=== PATIENT | male | born 1945 | race African-American/Black ===

== ENCOUNTER 2017-06-23 07:08 | Emergency (ER) | payer MEDICARE, OTHER ==
[2017-06-23] MEDS: HYDROcodone/APAP 5/325MG 1 TAB TABLET PO (07:47)
[2017-06-23 07:57] LABS: ADD MAN DIFF? NO
[2017-06-23 07:58] LABS: BASO # 0.1 x10^3/uL (0.0-0.2); BASO % 1 % (0-3); EOS # 0.2 x10^3/uL (0.0-0.7); EOS % 2 % (0-3); HEMATOCRIT 41.2 % (39.0-53.0); HEMOGLOBIN 13.4 g/dL (13.0-17.5); LYMPH # 1.5 x10^3/uL (1.0-4.8); LYMPH % 15 % (24-48); MEAN CORPUSCULAR HEMOGLOBIN 30 pg (25-35); MEAN CORPUSCULAR HGB CONC 33 g/dL (31-37); MEAN CORPUSCULAR VOLUME 93 fL (79-100); MONO # 0.9 x10^3/uL (0.0-1.1); MONO % 9 % (0-9); NEUT # 7.2 x10^3uL (1.8-7.7); NEUT % 73 % (31-73); PLATELET COUNT 270 x10^3/uL (140-400); RED BLOOD COUNT 4.42 x10^6/uL (4.30-5.70); RED CELL DISTRIBUTION WIDTH 13.7 % (11.5-14.5); WHITE BLOOD COUNT 9.8 x10^3/uL (4.0-11.0)
[2017-06-23 08:30] LABS: ANION GAP 10 (6-14); BLOOD UREA NITROGEN 19 mg/dL (8-26); BUN/CREATININE RATIO 13 (6-20); CALCIUM 9.1 mg/dL (8.5-10.1); CARBON DIOXIDE 26 mmol/L (21-32); CHLORIDE 102 mmol/L (98-107); CREATININE 1.5 mg/dL (0.7-1.3); GFR 55.7; GLUCOSE 193 mg/dL (70-99); SODIUM 138 mmol/L (136-145)
[2017-06-23 08:36] LABS: ALBUMIN 2.9 g/dL (3.4-5.0); ALBUMIN/GLOBULIN RATIO 0.6 (1.0-1.7); ALK PHOS 105 U/L (46-116); ALT (SGPT) 17 U/L (16-63); AST (SGOT) 13 U/L (15-37); TOTAL BILIRUBIN 0.5 mg/dL (0.2-1.0); TOTAL PROTEIN 7.5 g/dL (6.4-8.2); URIC ACID 6.8 mg/dL (3.5-7.2)
== END 2017-06-23 09:40 | disposition home or self-care (01) ==
LOC: ER 09:40
DX: M10.9 Gout, unspecified (principal); Z86.73 Personal history of transient ischemic attack (TIA), and cerebral infarction without residual deficits; I12.9 Hypertensive chronic kidney disease with stage 1 through stage 4 chronic kidney disease, or unspecified chronic kidney disease; N18.9 Chronic kidney disease, unspecified; E11.22 Type 2 diabetes mellitus with diabetic chronic kidney disease; Z88.8 Allergy status to other drugs, medicaments and biological substances
CPT/HCPCS: 36415; 73000; 73130; 80053; 84550; 85025; 93005; 99285-25

== ENCOUNTER → 2017-07-11 | Day surgery (SDC) | payer MEDICARE, OTHER ==
[~2017-07-11] MED LIST: LIDOCAINE 1% PF 2 ML VIAL. ID; LIDOCAINE 2% PF Vial for OR 5 ML VIAL.; MORPHINE SULFATE 4 MG/ML DISP.SYRIN. IV; ONDANSETRON PF 4 MG/2 ML VIAL. IV; PROCHLORPERAZINE 10 MG/2 ML VIAL. IV; PROPOFOL 20 ML IV; fentaNYL PF VIAL 100 MCG/2 ML VIAL IV
[2017-07-11] MEDS: IV RINGERS,LACTATED 1000ML 1,000 ML IV (09:47)
[2017-07-11 10:19] LABS: POC GLUCOSE 139 mg/dL (70-99)
== END ==
LOC: ENDOS 08:56
DX: Z12.11 Encounter for screening for malignant neoplasm of colon (principal); K63.5 Polyp of colon; E11.22 Type 2 diabetes mellitus with diabetic chronic kidney disease; N18.2 Chronic kidney disease, stage 2 (mild); I12.9 Hypertensive chronic kidney disease with stage 1 through stage 4 chronic kidney disease, or unspecified chronic kidney disease; F41.9 Anxiety disorder, unspecified; Z96.652 Presence of left artificial knee joint; Z86.73 Personal history of transient ischemic attack (TIA), and cerebral infarction without residual deficits; Z79.82 Long term (current) use of aspirin; Z79.899 Other long term (current) drug therapy; Z79.4 Long term (current) use of insulin
CPT/HCPCS: 45385; 82962; J2704

== ENCOUNTER 2017-09-04 15:33 | Emergency (ER) | payer MEDICARE, OTHER ==
[2017-09-04] MEDS: IBUPROFEN 600 MG TABLET. PO (16:09)
[2017-09-04 17:19] LABS: BILIRUBIN,URINE SMALL (NEG); CLARITY,URINE CLEAR; COLOR,URINE YELLOW; GLUCOSE,URINE NEGATIVE (NEG); NITRITE,URINE NEGATIVE (NEG); PH,URINE 5.5; PROTEIN,URINE 30 mg/dL (NEG-TRACE)
[2017-09-04 17:32] LABS: AMORPHOUS SEDIMENT,UR PRESENT /HPF; BACTERIA,URINE FEW /HPF (0-FEW); HYALINE CASTS, URINE OCCASIONAL /HPF; RBC,URINE 0 /HPF (0-2); SQUAMOUS EPITHELIAL CELL,UR OCC /LPF
== END 2017-09-04 18:07 | disposition home or self-care (01) ==
LOC: ER 15:33
DX: M54.5 Low back pain (principal); I13.10 Hypertensive heart and chronic kidney disease without heart failure, with stage 1 through stage 4 chronic kidney disease, or unspecified chronic kidney disease; E11.22 Type 2 diabetes mellitus with diabetic chronic kidney disease; N18.9 Chronic kidney disease, unspecified; Z86.73 Personal history of transient ischemic attack (TIA), and cerebral infarction without residual deficits; Z90.49 Acquired absence of other specified parts of digestive tract; Z88.8 Allergy status to other drugs, medicaments and biological substances
CPT/HCPCS: 72100; 81001; 87086; 99285-25

== ENCOUNTER 2017-10-17 14:03 | Emergency (ER) | payer MEDICARE, OTHER ==
[2017-10-17] MEDS: ALPRAZolam 0.5 MG TABLET PO (15:38)
[2017-10-17] MEDS: HYDROcodone/APAP 5/325MG 1 TAB TABLET PO (16:47)
== END 2017-10-17 16:47 | disposition home or self-care (01) ==
LOC: ER 14:03
DX: M48.02 Spinal stenosis, cervical region (principal); R51 Headache; I12.9 Hypertensive chronic kidney disease with stage 1 through stage 4 chronic kidney disease, or unspecified chronic kidney disease; E11.22 Type 2 diabetes mellitus with diabetic chronic kidney disease; N18.9 Chronic kidney disease, unspecified; I25.2 Old myocardial infarction; M10.9 Gout, unspecified; Z88.8 Allergy status to other drugs, medicaments and biological substances
CPT/HCPCS: 70450; 72125; 99283; 99284

== ENCOUNTER → 2019-10-16 | Outpatient (CLI) | payer MEDICARE, OTHER ==
[2017-10-17 16:22] VITALS: BP 160/82
[~2019-10-16] MED LIST changes: +ACET-1571 PO; +ACET500T68 PO; +ALLO100T PO; +ALPR1TAB2 PO; +AMLO10TA8 PO; +AMOX250C PO; +ASPI325T11 PO; +ASPI81TA59 PO; +ATOR20TA58 PO; +COLC0.6T34 PO; +DIAZ2TAB PO; +DOCU-109 PO; +FLUT9.9S NS; +GLIM4TAB8 PO; +GLIP5TAB10 PO; +HYDR-2868 PO; +HYDR-3164 PO; +HYDR-3165 PO; +HYDR12.575 PO; +Hydrocodone/Acetaminophen PO; +INSU100V11 SQ; +INSU200I4 SQ; -LIDOCAINE 1% PF 2 ML VIAL. ID; -LIDOCAINE 2% PF Vial for OR 5 ML VIAL.; +LIRA0.6P SQ; +LORA10TA3 PO; +LOSA-73 PO; +METO25TA4 PO; -MORPHINE SULFATE 4 MG/ML DISP.SYRIN. IV; +OMEG1CAP6 PO; -ONDANSETRON PF 4 MG/2 ML VIAL. IV; -PROCHLORPERAZINE 10 MG/2 ML VIAL. IV; -PROPOFOL 20 ML IV; +ZOST1940 SQ; -fentaNYL PF VIAL 100 MCG/2 ML VIAL IV
--- NOTE | 2019-10-16 16:11 | RAD ---
EXAM: Chest, 2 views. HISTORY: Cough. COMPARISON: 01/01/2015. FINDINGS: 2 views of the chest are obtained. There is no infiltrate, pleural effusion or pneumothorax. The heart is normal in size. There are small circumscribed nodular opacities overlying both lower lungs likely due to nipple shadows. IMPRESSION: No acute pulmonary finding. Small nodular opacities overlying the lower lungs likely due to nipple shadows. Follow-up following placement of nipple markers can be performed for confirmation. Electronically signed by: Sofya Estrella MD (10/16/2019 4:08 PM) [id number]
== END | disposition home or self-care (01) ==
LOC: RAD 14:27
PROVIDERS: ATTEND Family Medicine
DX: R05 Cough (principal)
CPT/HCPCS: 71046

== ENCOUNTER → 2020-10-01 | Outpatient (CLI) | payer MEDICARE, OTHER ==
[2020-06-09 15:00] VITALS: BP 160/58
[~2020-10-01] MED LIST changes: +ALPR0.5T6 PO; +AMLO-186 PO; +AMLO-187 PO; -AMLO10TA8 PO; +ASPI-630 PO; +HYDR-2759 PO; +HYDR12.58 PO; +INSU100I49 SQ; +LIRA0.6P2 SQ; +LOSA100T14 PO; +METO50TA6 PO; +REGADENOSON 0.4 MG/5 ML DISP.SYRIN. IV ONE
--- NOTE | 2020-10-01 16:18 | RAD ---
MR#: [id number] Date of Study: 10/01/2020 Ordering Physician: BRYSON THORNTON, Referring Physician: JAMES VALDEZ Tech: PEPE Mckenna ARRT (R) (N) APPROVED REPORT Test Type: Pharmacological Stress Nurse/Tech: Renae Munoz R.N. Test Indications: SANTOS Cardiac History: high chol, htn, pacemaker, dm Medications: see ehr Medical History: see ehr Resting ECG: Paced rhythm Resting Heart Rate: 74 bpm Resting Blood Pressure: 176/85mmHg Pretest Chest Pain: No chest pain Nurse/Tech Notes lungs cta, strong radial pulse Consent: The procedure was explained to the patient in lay terms. Informed consent was witnessed. Julio eout was entered into [facility]. History and Stress Test performed by RT Dawna Mi) (N) Pharm. Details Pharmacologic stress testing was performed using 0.4mg per 5ml of regadenoson given intravenously ove r 7-10 seconds. Stress Symptoms No chest pain or symptoms. POST EXERCISE Reason for Termination: Infusion complete Target HR: No Max HR: 94 bpm Max Blood Pressure: 179/89mmHg Chest Pain: No. Arrhythmia: No. occasional pacer spikes noted ST Change: No. INTERPRETATION Stress EKG Conclusion: Baseline EKG showed ventricular paced rhythm. Nondiagnostic changes at peak s tress. No arrhythmias. Imaging Protocol IMAGE PROTOCOL: Rest Tc-99m/stress Tc-99m 1 day Rest: Stress: Viability: Radiopharm.Tc99m CgevovmskDi40f Sestamibi Ecrb16cNg 30.2mCi Img Date 10/01/2020 10/01/2020 Inj-Img [id number]. 60min. Rest Admin Site:IV - Right HandAdministrator:PEPE Mckenna ARRT (R)(N) Stress Admin Site: IV - Right HandAdministrator: RT Dawna Mi)(N) STRESS DATA End Diast. Vol.99.0mlAv. Heart Rate84.0bpm End Syst. Vol.35.0mlCO Index BSA0.0L/min Myocardial Vpgg433.0gEject. Gidrrwfe44.0% Stress Rates Pk. Fill Rate2.73EDV/secLVtime Pk. Fill 165.81msec Pk. Empty Rate3.78ESV/secLVtime Pk. Xajmr580.79msec 1/3 Pk. Fill1.41EDV/sec Stress Scores Regional WT0.00Summed WT4.00 Regional WM0.00Summed WM3.00 LV Perfusion Scintigraphic images showed fixed inferior wall defect, most probably diaphragmatic attenuation artif act based on normal wall motion. No other fixed or reversible defects were seen. Wall Motion Normal left ventricular systolic function with ejection fraction calculated at 67%. LV Perf. Quant 17 Seg. SSS1.00 17 Seg. SRS1.00 17 Seg. SDS0.00 Stress Defect Extent (% LAD)0.00Rest Defect Extent (% LAD)0.00Rev. Defect Extent (% LAD)0.00 Stress Defect Extent (% LCX) 0.00Rest Defect Extent (% LCX)0.00Rev. Defect Extent (% LCX)0.00 Stress Defect Extent (% RCA)0.00Rest Defect Extent (% RCA)0.00Rev. Defect Extent (% RCA)0.00 Stress Defect Extent (% JESÚS)0.00Rest Defect Extent (% JESÚS)0.00Rev. Defect Extent (% JSEÚS)0.00 Conclusion 1. Regadenoson cardioisotope stress test showed diaphragmatic attenuation artifact without any eviden ce of ischemia or infarct. 2. Normal left ventricular systolic function with ejection fraction calculated at 67%. 3. Low risk for cardiac events. Signed by : Poncho Springer, Electronically Approved : 10/01/2020 16:18:14
== END ==
LOC: NM 09:36
PROVIDERS: ATTEND Internal Medicine Cardiovascular Disease
DX: R06.00 Dyspnea, unspecified (principal)
CPT/HCPCS: 78452; 93017; A9500; J2785

== ENCOUNTER 2021-01-05 09:53 | Emergency (ER) | payer MEDICARE, OTHER ==
[~2021-01-05] VITALS: Ht 175.3 cm; Wt 101.0 kg
[~2021-01-05 09:53] MED LIST changes: -REGADENOSON 0.4 MG/5 ML DISP.SYRIN. IV ONE
[2021-01-05 10:40] VITALS: BP 172/90
[2021-01-05] MEDS ORDERED: CYCLOBENZAPRINE 10 MG TABLET. PO ONE (10:45)
--- NOTE | 2021-01-05 11:13 | RAD ---
Right foot 3 views, left hip 2 views with one view pelvis. HISTORY: Right foot pain, fell on Monday, left hip pain Right foot 3 views were taken of the right foot. There is a metal fragments between the first and second metatar sals in the foot suggesting an old injury. There is a transverse fracture through the proximal third of the right fifth metatarsal without displacement. There is no acute fracture. There is extensive va scular calcification. There is mild spurring on the calcaneus. IMPRESSION: 1. Transverse fracture through the right fifth metatarsal without displacement. End impression Left hip with one view pelvis Single view was taken of the pelvis. There is mild arthritis in the right hip. Penile implant. Is no acute pelvic fracture. There is degenerative disc disease in the lower lumbar spine. 2 views were taken of the left hip. There is no acute left hip fracture. IMPRESSION: 1. No fracture noted in the pelvis or left hip. 2. Mild arthritis right hip. 3. Degenerative disc disease in lower lumbar spine. Electronically signed by: Sam Lee MD (01/05/2021 11:11 AM) [id number]
--- NOTE | 2021-01-05 11:20 | PHYS DOC ---
Past Medical History Past Medical History: Anxiety, CAD, Diabetes-Type II, High Cholesterol, H ypertension, Renal Disease, Stroke, Other Additional Past Medical Histor: STAGE 3 RENAL FAILURE, gout, cardiovascular disease Past Surgical History: Appendectomy, Pacemaker, Other Additional Past Surgical Histo: LT KNEE, back surgery L5, PENILE IMPLANT Smoking Status: Former Smoker Alcohol Use: None Drug Use: None General Adult EDM: Chief Complaint: MECHANICAL FALL HPI: HPI: Patient is a 75 year old male who presents with right lateral foot pain and left inguinal/left groin pain. About 48 hours ago he fell about 2 feet off of a stepladder, while working in his garage. He fell onto his right side. He sustained a superficial abrasion of his right elbow, which is not causing him any pain. He denies any right upper extremity pain. He denies any right-sided hip thigh or knee pain. He has right lateral foot pain, near his pinky toe. He is able to ambulate. In addition, he reports pain of his left groin, worsens with active hip flexion. He is any injury to the left side of his hip or pelvis. He admits that he has had pain intermittently there for years, and he alludes to this having been attributed to a lumbar radiculopathy issue, based on his description. He reports that he had not had pain quite this severe in some time, and after the fall it seems to be worse. Lightly bumped his head when he fell, hitting the side of a toolbox. He has no head injury, swelling or headache. He denies neck or back pain. He denied loss of consciousness. No new injury or trauma since then. He denies dizziness, syncope, abdominal pain, nausea vomiting, chest pain, dyspnea. He has not contacted his primary care physician. He has not taken anything for this pain yet. Review of Systems: Review of Systems: Constitutional: Denies fever or chills. [] Eyes: Denies change in visual acuity. [] HENT: Denies nasal congestion or sore throat. [] Respiratory: Denies cough or shortness of breath. [] Cardiovascular: Denies chest pain or edema. [] GI: Denies abdominal pain, nausea, vomiting, bloody stools or diarrhea. [] : Denies dysuria. [] Musculoskeletal: Denies back pain or joint pain. [] Integument: Denies rash. [] Neurologic: Denies headache, focal weakness or sensory changes. [] Endocrine: Denies polyuria or polydipsia. [] Lymphatic: Denies swollen glands. [] Psychiatric: Denies depression or anxiety. [] Heart Score: C/O Chest Pain: No Risk Factors: Risk Factors: DM, Current or recent (<one month) smoker, HTN, HLP, family history of CAD, obesity. Risk Scores: Score 0 - 3: 2.5% MACE over next 6 weeks - Discharge Home Score 4 - 6: 20.3% MACE over next 6 weeks - Admit for Clinical Observation Score 7 - 10: 72.7% MACE over next 6 weeks - Early Invasive Strategies Current Medications: Current Medications Medications (Trade) Dose Ordered Sig/Eric Start Time Stop Time Status Last Admin Dose Admin Cyclobenzaprine HCl (Flexeril) 10 mg 1X ONCE 01/05/21 10:45 01/05/21 10:46 DC 01/05/21 10:52 10 MG Allergies: Allergies: Allergies Coded Allergies Type Severity Reaction Last Updated Verified lisinopril Allergy Intermediate COUGH 07/11/17 Yes Physical Exam: PE: Constitutional: Well developed, well nourished, no acute distress, non-toxic appearance. [] HENT: Normocephalic, atraumatic, bilateral external ears normal, oropharynx moist, no oral exudates, nose normal. [] Eyes: PERRL, EOMI, conjunctiva normal, no discharge. [] Neck: Normal range of motion, no tenderness, supple, no stridor. [] Cardiovascular:Heart rate regular rhythm, no murmur, +2 dorsalis pedis pulses and radial pulses bilaterally. [] Lungs & Thorax: Bilateral breath sounds clear to auscultation [] Abdomen: Bowel sounds normal, soft, no tenderness, no masses, no pulsatile masses. [] Skin: Warm, dry, no erythema, no rash. No open wounds or lacerations. [] Back: No tenderness, no CVA tenderness. [] Extremities: No limb deformities are noted. Pelvis is stable. Mild soft tissue swelling and tenderness of the right, dorsal fifth metatarsal. No palpable crepitus or step-offs. Full painless range of motion of the digits of the right foot, full painless range of motion of the right ankle. No calf tenderness. Minimal soft tissue tenderness to palpation of the left inguinal area, near the iliopsoas insertion site. No bony tenderness. No tenderness with passive range of motion of either hip. Neurologic: Alert and oriented X 3, normal motor function, normal sensory function, no focal deficits noted. Gait is steady, 5 out of 5 motor strength all 4 extremities, speech is clear and fluent. [] Psychologic: Affect normal, judgement normal, mood normal. He is pleasant and cooperative. [] Current Patient Data: Vital Signs: Vital Signs Date Time Temp Pulse Resp B/P (MAP) Pulse Ox O2 Delivery O2 Flow Rate FiO2 01/05/21 10:40 98.1 100 16 172/90 (117) 98 98.1 EKG: EKG: [] Radiology/Procedures: Radiology/Procedures: IMAGING REPORT Signed PATIENT: DAREN KAHN ACCOUNT: [id number] : 1945 LOCATION: ER AGE: 75 SEX: M EXAM STATUS: PRE ER ORD. PHYSICIAN: CARLINE KENNEY DO REASON: RT foot pain, pt fell Monday PROCEDURE: FOOT RIGHT 3V Right foot 3 views, left hip 2 views with one view pelvis. HISTORY: Right foot pain, fell on Monday, left hip pain Right foot 3 views were taken of the right foot. There is a metal fragments between the first and second metatarsals in the foot suggesting an old injury. There is a transverse fracture through the proximal third of the right fifth metatarsal without displacement. There is no acute fracture. There is extensive vascular calcification. There is mild spurring on the calcaneus. IMPRESSION: 1. Transverse fracture through the right fifth metatarsal without displacement. End impression Left hip with one view pelvis Single view was taken of the pelvis. There is mild arthritis in the right hip. Penile implant. Is no acute pelvic fracture. There is degenerative disc disease in the lower lumbar spine. 2 views were taken of the left hip. There is no acute left hip fracture. IMPRESSION: 1. No fracture noted in the pelvis or left hip. 2. Mild arthritis right hip. 3. Degenerative disc disease in lower lumbar spine. Electronically signed by: Sam Lee MD (01/05/2021 11:11 AM) [id number] DICTATED and SIGNED BY: SAM LEE MD DATE: 01/05/21 [id number] 0 Course & Med Decision Making: Course & Med Decision Making Pertinent Labs and Imaging studies reviewed. (See chart for details) The patient does not want to take any opioid pain medication. He is agreeable to getting Flexeril, so this is given. Postop shoe was given for the right foot. I discussed the findings, differential diagnosis and plan of care with him. No current indication for further imaging or invasive exams. I recommend he contact his primary care physician. If his left inguinal/hip pain continues, he may require outpatient MRI. His foot fracture is nonsurgical, and he may follow-up with his PCP for this as well. He is comfortable with the plan of care. Return precautions are given. Dragon Disclaimer: Dragon Disclaimer: This electronic medical record was generated, in whole or in part, using a voice recognition dictation system. Departure Departure Impression: Primary Impression: Closed fracture of fifth metatarsal bone of right foot Additional Impression: Left inguinal pain Disposition: HOME / SELF CARE / HOMELESS Condition: LEFT WITHOUT BEING SEEN Referrals: NIGHAT MCCLUOD MD (PCP) Patient Instructions: Foot Fracture, Groin Strain Additional Instructions: Use the medication as needed and as directed. You may want to see a physical therapist for some gentle stretching of your left groin area. Wear the postop shoe to protect your foot. Your fracture should heal without any difficulty. Return for any new injury, more severe pain, fever of 100.4 or higher, more severe swelling, redness, open wounds of the skin, weakness or any other concerns. Contact your primary care physician for follow-up. You may require further imaging, such as MRI if your symptoms persist. Scripts Cyclobenzaprine Hcl (CYCLOBENZAPRINE HCL) 10 Mg Tablet 1 TAB PO BID for muscle relaxer, #14 TAB Prov: CARLINE KENNEY DO 01/05/21 CARLINE KENNEY DO Jan 05, 2021 11:20
[2021-01-05] MEDS ORDERED: CYCL10TA2 PO (11:40)
== END 2021-01-05 11:46 | disposition home or self-care (01) ==
LOC: ER 09:53
DX: S92.351A Displaced fracture of fifth metatarsal bone, right foot, initial encounter for closed fracture (principal); R10.32 Left lower quadrant pain; I25.10 Atherosclerotic heart disease of native coronary artery without angina pectoris; E11.9 Type 2 diabetes mellitus without complications; E78.00 Pure hypercholesterolemia, unspecified; I10 Essential (primary) hypertension; Z86.73 Personal history of transient ischemic attack (TIA), and cerebral infarction without residual deficits; Z95.0 Presence of cardiac pacemaker; Z88.8 Allergy status to other drugs, medicaments and biological substances; W11.XXXA Fall on and from ladder, initial encounter; Y93.89 Activity, other specified; Y92.89 Other specified places as the place of occurrence of the external cause; Y99.8 Other external cause status
CPT/HCPCS: 73502; 73630; 99284

== ENCOUNTER → 2021-03-04 | Outpatient (CLI) | payer MEDICARE, OTHER ==
[~2021-03-04] MED LIST changes: +CYCL10TA19 PO
[2021-03-04] MEDS: GADOTERATE 7.5 MMOL/15ML VIAL. IVP ONE (14:58)
--- NOTE | 2021-03-04 16:57 | RAD ---
MRI LUMBAR SPINE WITHOUT AND WITH IV CONTRAST History: Reason: MRI L-SPINE W/ W/O CONTRAST, INTERVERTEBRAL DISC DISORDER W/ MYELOPATHY / Spl. Ins tructions: 15mL CLARISCAN / History: Technique: Multiplanar, multi sequential MR imaging was performed of the lumbar spine without and wit h intravenous contrast. Comparison: December 10, 2014 Findings: Grade 1 anterolisthesis L4 on L5, increased compared to prior. Slight grade 1 anterolisthesis L5 on S 1, decreased compared to prior. Normal vertebral body height. No acute fracture. Mild degenerative en dplate edema L3-L4. Posterior decompression L4-L5 with posterior and left lateral epidural enhancement, likely fibrosis. Conus terminates at the normal location. No evidence of nerve root clumping. L1-L2: Small disc bulge. Mild facet arthropathy. No canal narrowing. Mild disc radicular recess narr owing. Mild bilateral neuroforaminal narrowing. L2-L3: Broad-based disc bulge. Mild facet arthropathy. Minimal canal narrowing. Subarticular recess narrowing. Mild bilateral neuroforaminal narrowing. L3-L4: Broad-based disc bulge. Mild canal narrowing. Subacute recess narrowing. Moderate facet arthr opathy. Ligament of flavum thickening. Mild bilateral neuroforaminal narrowing. L4-L5: Anterolisthesis. Disc uncovering with disc extrusion superiorly. Right posterior osteophytic changes with ill-defined enhancement. Severe canal narrowing. Advanced facet arthropathy. Severe suba rticular recess narrowing. Abutment of descending nerve roots. Severe bilateral neuroforaminal narrow ing with abutment of exiting L4 nerve roots. L5-S1: Small posterior disc bulge. Advanced facet arthropathy. Moderate canal narrowing. Subarticula r recess narrowing. Moderate left and severe right neuroforaminal narrowing. Impression: 1. Multilevel lumbar spondylosis most prominent L4-5 and L5-S1. 2. L4-5 grade 1 anterolisthesis with severe canal and subarticular recess narrowing. 3. Postoperative changes L4-5 with epidural enhancement may represent fibrosis. 4. Neuroforaminal narrowing most prominent bilateral L4-L5 and right L5-S1 Electronically signed by: Miguel Aleman DO (03/04/2021 4:54 PM) [id number]
== END ==
LOC: MRI 13:29
PROVIDERS: ATTEND Internal Medicine
DX: M47.817 Spondylosis without myelopathy or radiculopathy, lumbosacral region (principal); M43.16 Spondylolisthesis, lumbar region; R60.0 Localized edema; M48.07 Spinal stenosis, lumbosacral region; M48.8X7 Other specified spondylopathies, lumbosacral region; M51.27 Other intervertebral disc displacement, lumbosacral region; M51.06 Intervertebral disc disorders with myelopathy, lumbar region; Z98.890 Other specified postprocedural states
CPT/HCPCS: 72158; A9575

== ENCOUNTER → 2021-03-10 | Outpatient (CLI) | payer MEDICARE, OTHER ==
--- NOTE | 2021-03-10 13:51 | RAD ---
EXAM: Lumbar spine, flexion and extension; lumbar spine, 2 views. HISTORY: Pain. COMPARISON: None. FINDINGS: Frontal and lateral neutral and lateral flexion and extension views lumbar spine are obtain ed. There is 3 mm grade 1 anterolisthesis of L4 and L5 and L5 on S1. There is does not change between flexion and extension. There is mild retrolisthesis of L1 on L2, L2 on L3 and L3 on L4 which slightl y increases with extension. There is multilevel endplate remodeling and anterior predominant osteophy tosis. There is disc space narrowing predominantly at L4-L5. There is facet arthropathy predominantly at the lower lumbar levels. IMPRESSION: 1. Multilevel degenerative change, primarily at L4-L5. 2. Mild multilevel listhesis. This does not change between flexion and extension. Electronically signed by: Sofya Estrella MD (03/10/2021 1:48 PM) [id number]
== END ==
LOC: RAD 12:23
PROVIDERS: ATTEND Neurological Surgery
DX: M47.816 Spondylosis without myelopathy or radiculopathy, lumbar region (principal); M43.17 Spondylolisthesis, lumbosacral region; M48.8X6 Other specified spondylopathies, lumbar region; M25.78 Osteophyte, vertebrae
CPT/HCPCS: 72100; 72120

== ENCOUNTER → 2021-06-08 | Outpatient (CLI) | payer MEDICARE, OTHER ==
--- NOTE | 2021-06-08 15:04 | EKG ---
[facility] [address] [place] [address] Test Date: 2021-06-08 Test Time: 14:52:06 Pat Name: DAREN KAHN Department: Room: Gender: M Allergy Specialist: : 1945 Requested By: BERNY SANCHEZ Order Number: [id number] Reading MD: Anant Bailey MD Measurements Intervals [place] Rate: 70 P: 9 MI: 166 QRS: -63 QRSD: 146 T: 104 QT: 440 QTc: 478 Interpretive Statements SINUS RHYTHM V-PACED Electronically Signed On 06-10-2021 14:58:59 CDT by Anant Bailey MD
[2021-06-08 15:05] LABS: BASO # 0.1 x10^3/uL (0.0-0.2); BASO % 1 % (0-3); EOS # 0.3 x10^3/uL (0.0-0.7); EOS % 4 % (0-3); HEMATOCRIT 37.8 % (39.0-53.0); HEMOGLOBIN 12.4 g/dL (13.0-17.5); LYMPH # 1.9 x10^3/uL (1.0-4.8); LYMPH % 27 % (24-48); MEAN CORPUSCULAR HEMOGLOBIN 31 pg (25-35); MEAN CORPUSCULAR HGB CONC 33 g/dL (31-37); MEAN CORPUSCULAR VOLUME 93 fL (79-100); MONO # 0.6 x10^3/uL (0.0-1.1); MONO % 9 % (0-9); NEUT # 4.2 x10^3/uL (1.8-7.7); NEUT % 59 % (31-73); PLATELET COUNT 263 x10^3/uL (140-400); RED BLOOD COUNT 4.08 x10^6/uL (4.30-5.70); RED CELL DISTRIBUTION WIDTH 13.3 % (11.5-14.5)
[2021-06-08 15:32] LABS: ALBUMIN 3.4 g/dL (3.4-5.0); ALBUMIN/GLOBULIN RATIO 0.8 (1.0-1.7); CALCIUM 9.6 mg/dL (8.5-10.1); CREATININE 1.9 mg/dL (0.7-1.3); GFR 41.9; POTASSIUM 4.5 mmol/L (3.5-5.1); TOTAL BILIRUBIN 0.2 mg/dL (0.2-1.0); TOTAL PROTEIN 7.6 g/dL (6.4-8.2)
[2021-06-09 00:08] LABS: HEMOGLOBIN A1C 8.6 % (4.8-5.6)
== END ==
LOC: SURGPAT 14:09
PROVIDERS: ATTEND Neurological Surgery
DX: Z01.818 Encounter for other preprocedural examination (principal); M48.062 Spinal stenosis, lumbar region with neurogenic claudication
CPT/HCPCS: 36415; 80053; 83036; 85025; 87641; 93005

== ENCOUNTER 2021-06-14 07:10 | Day surgery (SDC) | payer MEDICARE, OTHER ==
[2021-06-08 14:29] VITALS: BP 152/74
--- NOTE | 2021-06-11 16:24 | HP ---
DATE OF SERVICE: 06/11/2021 ADMIT DATE: 06/14/2021 PREOPERATIVE HISTORY AND PHYSICAL HISTORY OF PRESENT ILLNESS: The patient is a pleasant 75-year-old who has undergone 2 surgeries on his lumbar spine. The most recent was at L4-L5 for herniated disc in 2014. His current problem is low back pain, which he describes as a stiffness-type pain. He says his main problem is difficulty with walking and hip pain with walking. The left side is more involved than the right. Standing and walking increases his pain. Sitting helps. He says his left leg feels very heavy. His pain is 6/10 with activity. He does have an artificial left knee. CURRENT MEDICATIONS: Hydralazine, alprazolam, Victoza, aspirin, allopurinol, acetaminophen, losartan, amlodipine, atorvastatin. PAST MEDICAL HISTORY: Diabetes, hypertension, arthritis, gout, chronic kidney disease, stroke, heart disease. PAST SURGICAL HISTORY: Appendectomy, cardiac cath, lumbar microdecompressive surgery at L4-L5 and L5-S1 in 09/2013, lumbar laminectomy L4-L5 and microdiskectomy L4-L5 in 12/2014, cataract surgery, pacemaker, left knee surgery. FAMILY HISTORY: Cancer, hypertension, diabetes. SOCIAL HISTORY: Retired, , nonsmoker. Does not drink alcohol. ALLERGIES: No known drug allergies. REVIEW OF SYSTEMS: A 12-point review of systems was performed and is noncontributory except that mentioned above. PHYSICAL EXAMINATION: GENERAL: Alert, pleasant, and in no acute distress. HEENT: Head is normocephalic, atraumatic. SKIN: Warm and dry. Well-healed lumbar incision. MUSCULOSKELETAL: Lumbar paraspinal muscle bulk is normal, restricted range of motion of the lumbar spine, [id number]-lr-[id number] tenderness of the lower lumbar spine with palpation, normal range of motion of the lower extremities bilaterally. EXTREMITIES: No clubbing, cyanosis or edema. NEUROLOGIC: Alert and oriented x3. Normal recent and remote memory, strength is 5/5 in the bilateral lower extremities except 4+/5 left foot dorsiflexion and 4/5 left EHL, sensory is intact to light touch in the lower extremities, reflexes were trace and symmetric in the lower extremities, positive straight leg raising on the left and a slow forward stooped gait. IMAGING: I reviewed his lumbar MRI scan. On that study, there is a grade 1 anterolisthesis of L4 and L5 as well as severe lumbar spinal stenosis. There is also severe subarticular recess narrowing. I also reviewed lumbar flexion/extension x-rays. I do not see significant motion. ASSESSMENT AND PLAN: I believe the majority of his symptoms are related to the severe lumbar stenosis at L4-L5. There is no motion and I am recommending a bilateral lumbar decompressive surgery to relieve the spinal stenosis. I spoke with him about the surgery including the technique, the risk and the expected postoperative course. He understands and would like to proceed. We will make the arrangements. ALIRIO DR: Twin TID: [id number] CHICA
[~2021-06-14] VITALS: Ht 175.3 cm; Wt 104.8 kg
[~2021-06-14 07:10] MED LIST changes: +0.9 % SODIUM CHLORIDE 20 ML VIAL. IJ ONE; +BUPIVACAINE-EPI 0.5% 30 ML VIAL KIT. ONE; +DEXAMETHASONE SOD PHOS 4 MG/ML VIAL ONE; +GELATIN SPONGE SIZE 100. ONE; +GLYCOPYRROLATE 1 MG/5 ML VIAL. ONE; +HYDROmorphone 2 MG/ML INJ. IVP PRN; +IV RINGERS,LACTATED 1000ML 1,000 ML IV SCH; +KETOROLAC 60 MG/2 ML VIAL. ONE; +LIDOCAINE 2% PF 5 ML VIAL. ONE; +MORPHINE SULFATE 2 MG/ML INJ. IVP PRN; +NEOSTIGMINE METHYLSULFATE 5 MG/5 ML SYRINGE. ONE; +ONDANSETRON PF 4 MG/2 ML VIAL. ONE; +PHENYLEPHRINE 10 MG/ML VIAL. ONE; +PHENYLEPHRINE in 0.9% NACL PF 1 MG/10 ML SYRINGE. IV ONE; +PROCHLORPERAZINE 10 MG/2 ML VIAL. IVP PRN; +PROPOFOL 0 ML IV ONE; +PROPOFOL 10 MG/ML (20ML) VIAL. IV ONE; +REMIFENTANIL 1 MG VIAL. IV ONE; +ROCURONIUM 50 MG/5 ML VIAL. ONE; +THROMBIN TOPICAL 20,000 UNIT SPRAY.SYRN KIT TP ONE; +ceFAZolin SODIUM 1 GM in IV NORMAL SALINE 1000ML BAG 1,000 ML IRR ONE; +fentaNYL PF VIAL 100 MCG/2 ML VIAL IVP PRN; +fentaNYL PF VIAL 100 MCG/2 ML VIAL ONE
[2021-06-14 07:33] VITALS: BP 205/95
[2021-06-14] MEDS ORDERED: PROPOFOL 50 ML IV ONE (07:35)
[2021-06-14] MEDS: INSULIN LISPRO 100 UNIT/ML 3ML VIAL for OP,RR ONLY. SQ PRN ×2 (08:14→13:16)
[2021-06-14] MEDS ORDERED: PROPOFOL 100 ML IV ONE (09:50)
[2021-06-14] MEDS ORDERED: GELATIN SPONGE SIZE 100. TP ONE (09:50)
[2021-06-14] MEDS ORDERED: GELATIN SPONGE SIZE 100. ONE (11:25)
[2021-06-14] MEDS ORDERED: METH-562 PO (12:12)
[2021-06-14] MEDS ORDERED: DOCU-109 PO (12:12)
[2021-06-14] MEDS ORDERED: HYDR-2761 PO (12:12)
--- NOTE | 2021-06-14 12:16 | DISCH ---
DISCHARGE INSTRUCTIONS Condition on Discharge Condition on Discharge: Stable Activity After Discharge Activity Instructions for Disc: Activity as tolerated, Avoid exertion, Other, see below Other activity instructions: no driving for a week Bathing Instructions: Shower-keep dressing dry, No Tub Bath until see Lifting Instructions after Dis: No heavy lifting, No pulling or pushing, Do not lift >10 pounds, Add. restrict see below Exercise Instruction after Dis: Progress as tolerated Driving Instructions after Dis: Do not drive Weight Bearing Status after Di: No restrictions Diet after Discharge Diet after Discharge: Diabetic No Calorie Level Additional Diet Restrictions: resume home diet Diet Texture: Regular Liquid Texture: Thin Liquid Swallowing Supervision: None needed Wound Incision Care Wound/Incision Care: Ice to area for comfort, Change dressing, Other, see below Other wound/incision instructi: may remove dressing in 48 hours if dry, yudith out in 2 weeks Wound Care Equipment: Dressings, Sutures/yudith Checks after Discharge Checks after discharge: Check blood sugar, ac/hs Contacting the [facility] after DC Call your doctor for: Concerns you may have Follow-Up Follow up with: Dr. Sanchez's nurse in 2 weeks [phone] Treatment/Equipment after DC Adaptive Equipment Issued: None BERNY SANCHEZ MD Jun 14, 2021 12:16
[2021-06-14 13:10] VITALS: BP 165/73
[2021-06-14] MEDS ORDERED: HYDROcodone/APAP 5/325MG 1 TAB TABLET PO ONE (13:15)
[2021-06-14] MEDS ORDERED: INSULIN LISPRO 100 UNIT/ML 3ML VIAL for OP,RR ONLY. SQ ONE ×2 (13:20)
--- NOTE | 2021-06-16 18:06 | PATHOLOGY ---
[facility] Accession Number: [id number] . 01 Material submitted: . vertebral column - LUMBAR DECOMPRESSION . 01 Clinical history: . LUMBAR STENOSIS . 02 Diagnosis: Segments of fibrocartilaginous and fibroadipose tissue and bone, lumbar decompression: - Degenerative changes of fibrocartilaginous tissue. (JPM:davin; 06/16/2021) S 06/16/2021 1752 Local . 02 Comment: There is no evidence of an acute inflammatory process or malignancy. (JPM:davin; 06/16/2021) . 02 Electronically signed: . Sesar Cormier MD, Pathologist NPI- [id number] . 01 Gross description: . The specimen is received in formalin, labeled "Matty Melgar, lumbar decompression". Received are multiple segments of pink-larry fibrous tissue admixed with gritty fragments of bone measuring 3.8 x 3.7 x 0.9 cm in aggregate dimensions. The specimen is submitted representatively in cassette A1, following decalcification. (CAA; 06/14/2021) QAC/QAC 06/14/2021 1521 Local . 02 Pathologist provided ICD-10: M51.36 . 02 CPT . 664560, [id number] Specimen Comment: A courtesy copy of this report has been sent to [phone], [phone] Specimen Comment: [id number] Specimen Comment: Report sent to / DR MCCLOUD Performed at: 01 [facility] [address], [place] [id number] MD Jama Petit MD Phone: [phone] Performed at: 02 [facility] [address] [place], [place] [id number] MD Sesar Cormier MD Phone: [phone]
--- NOTE | 2021-06-29 20:18 | OP ---
DATE OF SURGERY: 06/14/2021 PREOPERATIVE DIAGNOSES: Severe lumbar spinal stenosis, L4-L5 with severe subarticular recess narrowing and radiculopathy. POSTOPERATIVE DIAGNOSES: Severe lumbar spinal stenosis, L4-L5 with severe subarticular recess narrowing and radiculopathy. OPERATION PERFORMED: Lumbar laminectomy, L4-L5. This is a reoperation. The operation was done with EMG monitoring, SSEP monitoring, fluoroscopy, microscopic dissection. SURGEON: Kavin Puga M.D. FIRER MARINE: ADRIEL Almanza, assisted with the surgery. She assisted with the exposure, the laminectomy, as well as the closure. OPERATIVE INDICATIONS: The patient is a pleasant 75-year-old man who developed intractable back and bilateral leg pain. The left side is more involved than the right. He has undergone 2 previous surgeries in the lumbar spine, most recently at L4-L5 for herniated disc in 2015. He did have a grade I spondylolisthesis and I did have flexion, extension films performed in which there was no motion, so I recommended a laminectomy to see if this would help him. He understood the possibility he may in the future require an instrumented fusion. I discussed with him the surgery and risks. He wished to go ahead. DESCRIPTION OF PROCEDURE: Following general endotracheal anesthesia, the patient was positioned prone on the Topher table. Lumbar region prepped and draped in standard fashion. LANA hose and AV impulse boots were applied for DVT prophylaxis. The microscope was draped, fluoroscopy was draped and brought in the field. Monitoring was established. Ancef 2 grams was given less than one hour prior to initiation of surgery. Using fluoroscopic guidance, a midline incision was made directly over the L4-L5 interspace. I dissected down through skin and subcutaneous tissue, reflected the paraspinal muscles bilaterally and placed a self-retaining retractor. I brought in the microscope and the remainder of the surgery done with microscope using microscopic technique. Using curettes and high-speed air drill as well as rongeurs, I worked and gently cleared away scar, exposing the residual lamina from his previous surgery. I then trimmed away the spinous process and then using the high speed air drill begin superiorly working down to the dura and then using the drill working inferiorly, decompressed the dura widely down to the disc space and below. I trimmed away the residual ligamentum flavum and I fully decompressed the entire region ensuring also that the exiting nerve roots were well decompressed to the foramen. Following this, I explored carefully. The disc was firm and no discectomy was warranted. I did use small amounts of bone wax necessary for any bone bleeding. I closed the wound in layers with absorbable suture after hemostasis had been obtained and then I closed the skin with skin yudith. I felt the surgery went very well. MIRELA/IAIN DR: Andria TID: [id number] CHICA
== END 2021-06-14 14:22 | disposition home or self-care (01) ==
LOC: SURG 07:10
PROVIDERS: ATTEND Neurological Surgery
DX: M48.062 Spinal stenosis, lumbar region with neurogenic claudication (principal); E78.00 Pure hypercholesterolemia, unspecified; E66.9 Obesity, unspecified; M19.90 Unspecified osteoarthritis, unspecified site; I12.9 Hypertensive chronic kidney disease with stage 1 through stage 4 chronic kidney disease, or unspecified chronic kidney disease; E11.22 Type 2 diabetes mellitus with diabetic chronic kidney disease; N18.30 Chronic kidney disease, stage 3 unspecified; F41.9 Anxiety disorder, unspecified; M10.9 Gout, unspecified; Z87.891 Personal history of nicotine dependence; Z79.82 Long term (current) use of aspirin; Z79.4 Long term (current) use of insulin; Z79.899 Other long term (current) drug therapy; Z98.890 Other specified postprocedural states; Z88.8 Allergy status to other drugs, medicaments and biological substances
CPT/HCPCS: 63047; 88304; 88311; 97116; 97162; 97530; A4364; A4556; A4930; A6254; A6258; J0690; J1100; J1815; J1885; J2370; J2405; J2704; J2710; J3010; J3490; J7030; 76000; A4222; A4223; A4657